=== PATIENT | female | born 2005 | race Caucasian/White ===

== ENCOUNTER 2024-12-28 17:05 | Emergency (ER) | payer BC, SELFPAY ==
[2024-12-28 17:06] VITALS: BP 144/84; PULSE 110; RESP 16; TEMP 35.8; O2SAT 100; BMI 28.1
--- NOTE | 2024-12-28 17:23 | EDS_ITS ---
HPI <RINA Guido - Last Filed: 12/28/24 18:20> History of Present Illness Chief Complaint: Laceration Narrative Narrative: Patient is a 19-year-old female with no significant ankle history, unknown tetanus vaccination presents to the emergency department after slicing the left palm of her hand with a door. Patient states she send the door hard, and a piece of glass broke cutting her left hand. Patient has full range of motion. Patient states that she has no numbness or tingling however the bleeding scared her and she is here for evaluation. PFSH <RINA Guido - Last Filed: 12/28/24 18:20> [facility] Medical History no medical history Home Medications ?Medication ?Instructions ?Recorded ?Last Taken ?Type NK 12/28/24 Unknown History Allergy/AdvReac Type Severity Reaction Status Date / Time No Known Allergies Allergy Verified 12/28/24 17:06 Social History Smoking Status: Unknown if ever smoked ROS <RINA Guido - Last Filed: 12/28/24 18:20> ROS ED ROS Narrative Constitutional: Negative for fever, chills, weight loss, weakness Eyes: Negative for vision loss, vision change, double vision ENT: Negative for any sore throat, ear pain, congestion Cardiovascular: Negative for any chest pain, tightness, palpitations Respiratory: Negative for any cough, sputum production, hemoptysis, dyspnea, dyspnea on exertion, orthopnea Gastrointestinal: Negative for any abdominal pain, nausea, vomiting, diarrhea, constipation, blood in stool, blood in vomit : Negative for any urinary frequency, dysuria, retention, blood in urine Muscle skeletal: Negative for any neck pain, back pain Neurological: Negative for any headache, syncope, dizziness Skin: Negative for any rashes, itching, abrasions. Positive for laceration to the left hand Psychiatric: Negative for any depression, anxiety, stress, suicidal ideation, homicidal ideation Hematologic: Negative for any excessive bruising, easy bleeding EXAM <RINA Guido Last Filed: 12/28/24 18:20> Physical Exam Narrative Exam Narrative: Vital signs reviewed. Extremity: Patient does have a laceration to the palm of the left hand, this is mostly over the distal radial aspect. There is no difficulty with moving fingers, thumb has full range of motion. This is full-thickness and will need sutured. +2 radial pulse. Neuro: Cranial nerves II through XII intact, no focal neurological deficits. Skin: Clean dry and intact with no rash, purpura, petechiae, vesicles or pustules. Backs/flank: No CVA tenderness, no midline spinal tenderness, no deformity. Psych: Normal mood and affect. No SI, HI or acute psychosis. Const Vital Signs: 12/28/24 17:06 Temperature 96.5 F L Temperature Source Temporal Pulse Rate 110 H Respiratory Rate 16 Blood Pressure 144/84 H Blood Pressure Mean 104 Pulse Ox 100 Oxygen Delivery Method Room Air Positive well nourished and well developed General Appearance ED: well developed <Dr. Antoni Ibanez DO - Last Filed: 12/28/24 19:43> Physical Exam Const Vital Signs: 12/28/24 17:06 Temperature 96.5 F L Temperature Source Temporal Pulse Rate 110 H Respiratory Rate 16 Blood Pressure 144/84 H Blood Pressure Mean 104 Pulse Ox 100 Oxygen Delivery Method Room Air MDM <RINA Guido - Last Filed: 12/28/24 18:20> MDM Radiography Diagnostic Testing: Clinical Impression(s) from Imaging Studies Hand X-Ray 12/28/24 17:45 IMPRESSION: Soft tissue swelling about the base of the thumb. No radiopaque foreign body or fracture. Reading Location: [facility] Treatment and Re-Evaluation :: Differential diagnosis includes however is not limited to: Foreign body left hand, ligamental laceration, simple laceration, Patient appears generally well, vital signs are stable, patient is nontoxic- appearing. Presenting to the emergency department after sustaining a laceration to the left hand from a glass door. X-rays to be obtained to ensure there is no foreign body. Patient left hand laceration roughly 3 cm horizontal length. Tetanus vaccination updated. All radiologic examinations were read, reviewed by the emergency department attending. From these reads, a plan of care will be put in place. X-rays were negative. Patient did have a 3 cm laceration to the left palm. I was able to place 8 simple interrupted sutures of 4-0 Ethilon. Patient was extremely anxious, I constantly had to remind her to calm her breathing down. Edges approximated nicely. There was another small 0.5 cm laceration that I wanted to fix however she declined that. At this time, patient will have the sutures removed in 10 to 12 days. She instructed to keep the area clean and dry. Sterile gloves, sterile drapes were used. I was able to irrigate with 200 cc normal saline. There is no foreign body noted. <Dr. Antoni Ibanez, DO - Last Filed: 12/28/24 19:43> [facility] Narrative Medical decision making narrative: I have personally performed a face to face assessment of the patient and have reviewed the [facility] Note. I performed a substantive portion of the visit including all aspects of the following. My smith findings include: History: Patient presents with laceration to her left hand that occurred today. Patient states she accidentally closed it in a glass door. Patient states the glass broke and cut her hand. Patient describes her pain as aching. Patient denies any paresthesias or weakness. Patient states that There are several minutes of pressure. Patient is unsure of her last tetanus. Exam: Vital signs are stable except for mild tachycardia of 110. Patient is afebrile. Patient is in no acute distress. Skin is warm and dry. There is a 3 cm full-thickness linear laceration over the thenar eminence of the left hand. There is mild gapping of the wound margins. There is mild bleeding noted. There are no foreign bodies visualized. Strength is 5/5 in the radial, median, and ulnar areas. Sensation was intact to light touch in the radial, median, and ulnar areas. Radial pulses are equal bilaterally. Medical Decision Making: X-rays of the left hand will be obtained to assess for foreign body and fracture. Patient was given a tetanus booster. X-rays of the left hand were obtained. There are 3 views. On my independent interpretation, there is no radiopaque foreign body. There is no acute fracture. Radiologist also interpreted the x-rays and agrees. The wound was cleaned and irrigated with copious amounts normal saline. The plan was anesthetized with 1% lidocaine with epinephrine locally. The wound was closed with 8 simple interrupted #4-0 Ethilon sutures by the [facility] under my supervision. Patient tolerated procedure well. Bacitracin dressing was applied. Patient was instructed to follow-up with her primary care physician in 5 to 7 days. Patient understood and was agreeable with the plan. All questions were answered. Radiography Diagnostic Testing: Clinical Impression(s) from Imaging Studies Hand X-Ray 12/28/24 17:45 IMPRESSION: Soft tissue swelling about the base of the thumb. No radiopaque foreign body or fracture. [facility] Triage Chief Complaint: Laceration ED Midlevel Provider: Fabián Enriquez ED Provider: Antoni Ibanez Dx/Rx/DC Orders Clinical Impression: Hand laceration Instructions: ED Laceration, All Closures Prescriptions: No Action NK Primary Care Provider: Care Physician,No Primary Referrals: Care Physician,No Primary [Primary Care Provider] - Activity Restrictions/Additional Instructions: You have 8 sutures in your left hand. Keep the area clean and dry. Have the sutures removed in 10 to 12 days Print Language: Macedonian Disposition Disposition: Home, Self Care Discharge Date/Time: 12/28/24 18:32
[2024-12-28] MEDS: Lidocaine 1% /Epi 1:100 (20ml) 20 ML Vial 5 ML INFILT (17:25)
[2024-12-28] MEDS: Diphth,Pertuss(Acell),Tet Vac 0.5 ML Vial IM (17:26)
--- NOTE | 2024-12-28 17:45 | RAD_ITS ---
PROCEDURE: HAND MIN 3 VIEWS REASON FOR EXAM: Laceration TECHNIQUE: 3 view(s) of the left hand COMPARISON: None. FINDINGS: No visible fracture. No suspicious bone lesion. Normal alignment. Soft tissue swelling present near the base of the thumb. No radiopaque foreign body identified. RAD/Hand Min 3 Views IMPRESSION: Soft tissue swelling about the base of the thumb. No radiopaque foreign body o r fracture. Reading Location: [facility]
== END 2024-12-28 18:32 | disposition home or self-care (01) ==
PROVIDERS: Emergency Provider Emergency Medicine; Visit Provider Emergency Medicine
DX: S61.412A Laceration without foreign body of left hand, initial encounter (principal); W25.XXXA Contact with sharp glass, initial encounter; Z23 Encounter for immunization
CPT/HCPCS: 12002; 73130; 90715; 99284